=== PATIENT | female | born 1950 ===

== ENCOUNTER 2017-11-22 09:31 | Outpatient (RCR) | payer MEDICARE, OTHER ==
--- NOTE | 2017-12-13 11:33 | SWALLOW EVALUATION ---
SPEECH THERAPY ASSESSMENT Physician: Myron Wilkes M.D. Clinician: Mariposa Garcia MS, [facility] [place]-ORDER ENTRY CLERK Type of Assessment: Vocal production evaluation Patient: Rachel Henriquez : 48 Evaluation Date: 12-01-17 BACKGROUND The patient is an 67 year old female referred to [facility] for an ST swallow evaluation to further evaluate swallow structure and function . The patient had received speech therapy at [facility] and reports that swallow has improved somewhat but voice continues to be her primary concern. She has a history of chronic cough and GERD, dysphagia , and dysphonia with vocal fold dysfunction. PREVIOUS LEVEL OF FUNCTION: Primary Medical Diagnosis: Vocal deficits with dysphagia Medical Complications/Past Medical History: See chart for details Pain Scale (0-10): 0 LOC / Participation: alert cooperative Follows instructions: yes Orientation: oriented to person, place, time, situation Functional Communication Deficits impact swallow function/safety, or response to therapy: No VOICE Vocal Deficits: Yes. Hoarse voice with aphonia. Decrease pitch variation. Changes to vocal quality: Yes. 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 Max phonation time: average of 7sec high/mid/low pitch Pitch: decreased functional pitch variation during conversation and when cued during sustained vowel production. DYSPHAGIA Dysphagia Risk Evaluation Protocol DREP: Water Swallow Test: Pass, Puree Swallow Test: Pass, Solids Swallow Test: Pass Dyshpagia Severity Rating Scale: Level 3: Mild potential for aspiration exists but is diminished by a modified diet and compensatory techniques at this time. KELSEY NOMS Swallow Scale Score Based on DREP Results: Level 6: Swallowing is safe with compensatory techniques. The individual eats and drinks independently and may rarely require minimal cueing. The individual usually self-cues when difficulty occurs. May need to avoid specific food items (e.g., popcorn and nuts), and require additional time (due to dysphagia). RSST (Repetitive Saliva Swallow Test): Value greater or equal to than 3 times/ 30 sec = pass Sialorrhea: No Xerostomia: Yes Oxygen Use: No Oral Structure and Function: Within functional limits for speech and swallow. Pain with Swallow: Denies Respiratory/Swallow Coordination: Typically patterned (ie. exhale/swallow/ exhale) Oral Stage Oral Stage Dysphagia: mild Comment: Pt xerostomia decreases efficiency and effectiveness of mastication , AP bolus transit, as well as increasing difficulty with swallow initiation. Pharyngeal Stage Pharyngeal Stage Dysphagia: Mild pharyngeal stage dysphagia d/t vocal fold insufficiency Indication of acute aspiration witnessed or reported by patient, family or staff : Yes Aspiration Risk: Increased 2nd to COPD, mild oral dysphagia, patient is geriatric 63+, witnessed aspiration Esophageal Stage History of GERD ST ASSESSMENT SUMMARY DYSPHAGIA Mild oral and pharyngeal dysphagia 2nd to L side vocal fold paresis increase risk of aspiration. Vocal deficits are present decreasing functional communication. Please see above for further details. FUNCTIONAL COMMUNICATION: Moderate deficits in speech sound production decrease the patients participation in communicative IADLs including those related to medical care, personal wants/needs, social wants/needs Speech Therapy Need ST will address swallow deficits for safety and independence and vocal deficits for functional communication deficits. Patient/ Caregiver training /education will be completed. RECOMMENDATIONS Speech therapy is medically necessary for this patient to address the above described medical issues. ST is recommended 3wk8 for vocal production program and exercise based dysphagia therapy program. Diet Modification: ISADORA with precautions as set forth by previous ORDER ENTRY CLERK. Pt demonstrates independence : sit up straight, small sips/bites, slow rate PLAN OF CARE Short Term Goals 1. The patient will participate in an 8wk dysphagia exercise based therapy program to address oropharyngeal dysphagia. 2. Pt will participate in 8wk vocal production exercises to address vocal fold deficits for functional voice and swallow Long-Term Goals 1. Pt will demonstrate swallow with low risk of penetration/aspiration and without witnessed penetration/aspiration during follow up MBS. Rehabilitation Prognosis: Good. Pt has demonstrated improvement and is responsive to cuing Thank you for this referral. Please call [phone] Mariposa Garcia M.S., CCC-ORDER ENTRY CLERK Physician Signature Date MTDD
== END 2017-11-22 18:00 | disposition home or self-care (01) ==
LOC: ST 09:31
PROVIDERS: ATTEND Internal Medicine Pulmonary Disease
DX: Z00.00 Encounter for general adult medical examination without abnormal findings (principal); R05 Cough; K21.9 Gastro-esophageal reflux disease without esophagitis